=== PATIENT | male | born 1950 | race Caucasian/White ===

== ENCOUNTER → 2017-05-10 | Outpatient (CLI) | payer MEDICARE, OTHER ==
[~2017-05-10] MED LIST: ASCO-182 PO; ASPI-1471 PO; CAN32 PO; CHOL100058 PO; MULT1TAB64 PO; NISO30TA PO; PANT40TA65 PO
--- NOTE | 2017-05-10 13:10 | RADIOLOGY IMAGING REPORT ---
[place] [facility] [place] Moon : 1950 MR: [id number] V: [id number] EXAM DATE: ORDERING PHYSICIAN: APOORVA ARTEAGA TECHNOLOGIST: Location: [facility] - [place] Patient: Neal Moon : 1950 Visit/Account:[id number] Date of Sevice: 05/10/2017 FOOT 3 VIEW RIGHT Indication: Right foot pain for three weeks, rule out gout Comparison: None Available Findings: 3 views of the right foot were obtained. There is mild degenerative narrowing with spurring noted along the lateral aspect first MTP joint. T here is circumferential soft tissue swelling with adjacent soft tissue calcifications. Oblique image s demonstrate a very subtle juxta cortical erosion along the medial neck first metatarsal bone. Cons tellation of findings are indicative of gouty arthritis. IMPRESSION: 1. Degenerative and soft tissue changes surrounding the first MTP joint indicative of gouty arthriti s. Report Dictated By: Praful Mayfield MD at 05/10/2017 1:04 PM Report E-Signed By: Praful Mayfield MD at 05/10/2017 1:06 PM WSN:[email or web address]
== END ==
LOC: RAD 11:24
PROVIDERS: ATTEND Nurse Practitioner Family
DX: M10.071 Idiopathic gout, right ankle and foot (principal)
CPT/HCPCS: 36415; 82040; 82247; 82310; 82374; 82435; 82565; 82947; 84075; 84132; 84155; 84295; 84450; 84460; 84520; 84550

== ENCOUNTER → 2017-08-18 | Outpatient (CLI) | payer MEDICARE, OTHER ==
[2017-08-18 11:33] LABS: PLATELET COUNT, AUTOMATED 143 K/uL (150-450)
[2017-08-18 11:46] LABS: LDL CHOLESTEROL 73 mg/dl
== END ==
LOC: LAB 10:52
PROVIDERS: ATTEND Nurse Practitioner Family
DX: I10 Essential (primary) hypertension (principal); E78.5 Hyperlipidemia, unspecified; R35.1 Nocturia
CPT/HCPCS: 36415; 82040; 82247; 82310; 82374; 82435; 82465; 82565; 82947; 83718; 84075; 84132; 84153; 84155; 84295; 84450; 84460; 84478; 84520; 85025

== ENCOUNTER → 2018-08-17 | Outpatient (CLI) | payer MEDICARE, OTHER ==
[2018-08-17 11:26] LABS: PLATELET COUNT, AUTOMATED 154 K/uL (150-450)
[2018-08-17 11:49] LABS: LDL CHOLESTEROL 51 mg/dl
== END ==
LOC: LAB 10:15
PROVIDERS: ATTEND Nurse Practitioner Family
DX: K21.9 Gastro-esophageal reflux disease without esophagitis (principal); I10 Essential (primary) hypertension; E78.5 Hyperlipidemia, unspecified; R35.1 Nocturia
CPT/HCPCS: 36415; 82040; 82247; 82310; 82374; 82435; 82465; 82565; 82947; 83718; 84075; 84132; 84153; 84155; 84295; 84450; 84460; 84478; 84520; 85025

== ENCOUNTER → 2018-09-06 | Outpatient (CLI) | payer MEDICARE, OTHER ==
--- NOTE | 2018-09-06 10:04 | RADIOLOGY IMAGING REPORT ---
FACILITY: [facility] PATIENT NAME: Neal Moon : 1950 MR: [id number] V: [id number] EXAM DATE: ORDERING PHYSICIAN: APOORVA ARTEAGA TECHNOLOGIST: Location: [facility] - [place] Patient: Neal Moon : 1950 Visit/Account:[id number] Date of Sevice: 09/06/2018 BONE DENSITY DEXA Scan PPI usage. Comparison: None. LUMBAR SPINE: The bone mineral density (BMD) measured from L1-L4 correlates with a Z-score of -0.1 and a T-score of - 0.6 which is low normal as defined by the World Health Organization. The corresponding risk of fr acture in the lumbar spine is increased slightly between 1-2 times compared with a young adult refere nce population. HIP: Bone mineral density (BMD) measured in the left total hip region correlates with a Z-score of -0.4 an d a T-score of -1.1 which is osteopenia as defined by the World Health Organization. The correspondi ng risk of fracture in the hip is increased over 2 times compared with a young adult reference popula tion. Bone mineral density (BMD) measured in the left Femoral Neck region measures 0.899 g/cm?. . T score -1.3. Osteopenia. Fracture is increased between 2-3 times. Impression: 1. Lumbar spine: Low normal. 2. Left Total Hip: Osteopenia. 3. Left Femoral Neck: Bone Mineral Density is 0.899 g/cm? . Osteopenia The next DEXA scan of this patient should include the following sites: L1-L4 and left hip. FRAX? WHO Fracture Risk Assessment Tool link: <http://www.shef.ac.uk/FRAX/tool.jsp?locationValue=9> PLEASE NOTE: 1) The World Health Organization defines low BMD as follows: T-score Normal > -1 Osteopenia < -1 and > -2.5 Osteoporosis < -2.5 without fractures Established osteoporosis < -2.5 with fractures 2) In general, you may wish to consider: Diagnosis Treatment Follow-up DEXA Normal BMD Prevention 2-3 years Osteopenia Prevention/therapy 1-2 years Osteoporosis Therapy Yearly 3) Fracture risk estimated from the T-score is more accurate for vertebral fractures (often spontane ous) than for hip fractures. Report Dictated By: Galo Cordero MD at 09/06/2018 9:55 AM Report E-Signed By: Galo Cordero MD at 09/06/2018 9:56 AM WSN:[email or web address]
== END ==
LOC: RAD 08:44
PROVIDERS: ATTEND Nurse Practitioner Family
DX: M85.852 Other specified disorders of bone density and structure, left thigh (principal)
CPT/HCPCS: 77080